=== PATIENT | female | born 2005 | race Caucasian/White ===

== ENCOUNTER 2024-01-21 15:22 | Emergency (ER) | payer OTHER, SELFPAY ==
[2024-01-21 15:24] VITALS: BP 109/84
[2024-01-21 16:20] VITALS: BP 124/76
[2024-01-21 16:21] VITALS: BMI 18.1
--- NOTE | 2024-01-21 16:22 | EDRN ---
Lalita from crisis w/ pt at this time.
--- NOTE | 2024-01-21 16:32 | ED.GENMED ---
History of Present Illness
General
Chief Complaint: Crisis Evaluation
Source: patient
Time Seen by Provider: 01/21/24 15:31
History of Present Illness
History of Present Illness:
18-year-old female with no significant past medical history presenting to the emergency department for evaluation of suicidal ideations without plan or intent that started worsening last night the patient notes that she has had generalized
depression for a few years. Over the summer patient reports she talked to a therapist but reports she did not get any relief with this. Patient currently a student at [employer], contacted her parents last night around 130 who drove up
to campus to bring the patient home. Mother was contacting different facilities and was recommended to go to [facility] and patient was sent to the ER first for medical clearance. Patient without any medical concerns at this time. Patient
denies any homicidal ideation, auditory or visual hallucinations.
Past History
Past History
ED Past Medical History: None
ED Past Surgical History: Orthopedic
Social History
Tobacco: Non-smoker
Alcohol: Occasional
Drug: None
Personal: Single
Living: with roommate
Employment: Student
Review of Systems
Review of Systems
All Other Systems: ROS reviewed and negative except as documented in HPI and ROS
Phy Exam
Physical Exam
Physical Exam:
GENERAL: Alert , in no apparent distress
EYE: conjunctiva clear
Head: Normocephalic atraumatic
NECK: Supple,
ENT: mmm.
LUNGS: no acute respiratory distress
NEUROLOGICAL: Alert and oriented
SKIN: Warm and dry, skin intact.
MUSCULOSKELETAL: well perfused.
PSYCH: Normal and appropriate interaction.
Scores
Heart Failure Risk
Heart Failure Risk Score: Not Applicable
Heart Score for Chest Pain Patients
STEMI patient?: Not applicable
Withdrawal Assessment of Alcohol
Withdrawal Assessment Completed?: Not applicable
Course
Orders/Labs/Results
Orders:
Orders
01/21/24 15:24
Crisis Consult Urgent
Reason for Consult: suicidal ideations
01/21/24 16:35
Complete Blood Count/With Diff Urgent
Comprehensive Metabolic Panel Urgent
Vital Signs
Initial and Last Documented VS:
Initial Vital Signs
Temp Pulse Resp BP Pulse Ox
98.7 F 89 18 109/84 98
01/21/24 15:24 01/21/24 15:24 01/21/24 15:24 01/21/24 15:24 01/21/24 15:24
Last Documented Vital Signs
Temp Pulse Resp BP Pulse Ox
98.7 F 82 16 124/76 98
01/21/24 15:24 01/21/24 16:20 01/21/24 16:20 01/21/24 16:20 01/21/24 16:20
MDM/Problems Addressed
MDM/Problems Addressed:
18-year-old female presenting to the emergency department with mother for further evaluation of suicidal ideation without plan or intent. Patient without any physical concerns at this time. Medically cleared to be evaluated by [facility] staff. Patient's mother to remain in room with patient during duration of the ER visit which is why the one-to-one was removed from initial order set. Mother is aware that she is unable to leave the room while crisis staff is not present.
*Pulse Oximetry
Patient hypoxic: no
*Critical Care Note
Total Time (30-74mins, 75-104mins- exclusive of procedures): Not Applicable
Patient Management
Discussion with other providers: Other ([facility])
Escalation/DeEscalation of care consider admission/obs:
4:35 PM - Per [facility], patient agreeable to inpatient evaluation. Currently arranging for inpatient bed.
4:55 PM - I was recontacted by [facility] and patient changed her mind and would prefer to do intense outpatient therapy instead of inpatient. They will arrange the therapy prior to discharge. Patient feels comfortable with this plan
ED Attending Note
-
Portions of this chart may have been created with voice recognition software.� Occasional wrong word or��sound alike� substitutions may have occurred due to the inherent limitations of voice recognition software.
Discharge Plan
Departure
Patient Disposition: Home (Routine Discharge)
Date of Disposition: 01/21/24
Time of Disposition: 16:36
Patient with high blood pressure during this ER visit?: No
Discharge Problem:
Depression
Interventions
Interventions:
*Risk Screen - Suicide Last Done: 01/21/24 15:22
*General Assessment Last Done: 01/21/24 15:24
*Neglect/Abuse Screening Last Done: 01/21/24 15:24
ED- Fall Risk Assessment Last Done: 01/21/24 16:23
*ED COVID-19 Vaccine History Last Done: 01/21/24 15:24
*Nursing Disposition Last Done: 01/21/24 17:18
ED-Psychological Assessment Last Done: 01/21/24 16:21
Discharge Date and Time
Discharge Date/Time: 01/21/24 17:19
Print Language: GERMAN
--- NOTE | 2024-01-21 17:16 | EDRN ---
Labs and urine tests cancelled by [facility] DEL[facility]OS[facility] as pt was referred to outpt therapy and these labs would have been needed for inpt therapy.
== END 2024-01-21 17:19 | disposition home or self-care (01) ==
LOC: EMR 15:22
PROVIDERS: EMERGENCY PHYSICIAN Emergency Medicine; FAMILY PHYSICIAN Pediatrics
DX: R45.851 Suicidal ideations (principal); F32.A Depression, unspecified
CPT/HCPCS: 99284